=== PATIENT | female | born 1990 | race African-American/Black ===

== ENCOUNTER 2016-08-20 22:34 | Emergency (ER) | payer OTHER ==
[~2016-08-20] VITALS: Ht 162.6 cm; Wt 86.4 kg
[2016-08-20 22:42] LABS: GLUCOSE,POINT OF CARE 359 MG/DL (70-110)
[2016-08-20 23:38] VITALS: BP 133/86
== END 2016-08-21 00:04 | disposition home or self-care (01) ==
LOC: EMS 22:35
DX: T16.2XXA Foreign body in left ear, initial encounter (principal); E11.65 Type 2 diabetes mellitus with hyperglycemia; X58.XXXA Exposure to other specified factors, initial encounter; Y93.89 Activity, other specified; Y92.89 Other specified places as the place of occurrence of the external cause; Y99.8 Other external cause status
CPT/HCPCS: 82962; 99282; 99283

== ENCOUNTER 2019-08-31 17:13 | Emergency (ER) | payer SELFPAY ==
[~2019-08-31] VITALS: Ht 162.6 cm; Wt 102.0 kg
[2019-08-31] MEDS ORDERED: BUPIVACAINE 0.25%/EPI 1:200,000/PF 10 ML VIAL SQ ONE (17:45)
[2019-08-31] MEDS ORDERED: LIDOCAINE 1%/EPI 1:200,000/PF 30 ML VIAL ONE (17:46)
[2019-08-31] MEDS ORDERED: LIDOCAINE 1%/EPI 1:200,000/PF 30 ML VIAL SQ ONE (18:00)
[2019-08-31 19:08] VITALS: BP 119/85
== END 2019-08-31 19:13 | disposition home or self-care (01) ==
LOC: EMS 17:13
DX: S61.412A Laceration without foreign body of left hand, initial encounter (principal); W26.0XXA Contact with knife, initial encounter; Y93.89 Activity, other specified; Y92.89 Other specified places as the place of occurrence of the external cause; Y99.8 Other external cause status
CPT/HCPCS: 12001; 96372; 99283; J3490 ×2